=== PATIENT | female | born 2000 | race Caucasian/White ===

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

== ENCOUNTER → 2019-01-06 11:42 | Outpatient (CLI) | payer MEDICAID, SELFPAY ==
[2019-01-06 09:10] VITALS: BMI 22.7
--- NOTE | 2019-01-06 11:46 | US_ITS ---
STUDY: SECOND AND THIRD TRIMESTER OBSTETRICAL ULTRASOUND - LIMITED REASON FOR EXAM: Female, 18 years old. , assessment, recheck placenta LMP: August 15, 2018 PRIOR ULTRASOUND: November 20, 2018 TECHNIQUE: Transabdominal evaluation of the pelvis was performed using real-time ultrasound. FINDINGS: There is a single intrauterine fetus. The fetus is in a cephalic presentation. There is demonstrated cardiac activity with a heart rate of 150 bpm. There is a normal amniotic fluid volume. The placenta is anterior in location and is not low lying. There are Grade 1 placental changes. The cervix measures 3.8 cm in length. Two separate heterogeneous collections were measured adjacent to the placenta measuring 2.9 x 1.7 x 3.6 cm and 3.7 x 1.0 x 4.5 cm. BIOMETRY: BPD: 5.07 cm: 21 weeks, 3 days HC: 18.78 cm: 21 weeks, 1 days AC: 15.54 cm: 20 weeks, 5 days FL: 3.38 cm: 20 weeks, 5 days Age by LMP: 20 weeks, 4 days. MIKE by LMP: May 22, 2019. age by prior US: weeks, days. MIKE by prior US: May 19, 2019. age by current US: 21 weeks, 0 days. MIKE by current US: May 19, 2019. Estimated weight: 373 grams, +/- 55 grams, 54 percentile. US/OB Limited With Biometrics IMPRESSION: There is a viable intrauterine with estimated gestational age of 21 weeks 0 days by the current ultrasound. Two separate collections were measured adjacent to the placenta, probable resolving hematomas. The sizes are considerably smaller compared to the prior study. Electronically Signed: Yu Vang MD at 16:18 EST , Service support ,
== END ==
PROVIDERS: Referring Provider Obstetrics & Gynecology; Visit Provider Obstetrics & Gynecology
DX: O09.72 Supervision of high risk pregnancy due to social problems, second trimester (principal); O44.02 Complete placenta previa NOS or without hemorrhage, second trimester; Z3A.00 Weeks of gestation of pregnancy not specified
CPT/HCPCS: 76816

== ENCOUNTER → 2019-02-10 16:41 | Outpatient (CLI) | payer MEDICAID, SELFPAY ==
[2019-02-04 15:24] VITALS: BMI 22.7
== END ==
PROVIDERS: Referring Provider Nurse Practitioner Women's Health; Visit Provider Nurse Practitioner Women's Health
DX: R30.0 Dysuria (principal)
CPT/HCPCS: 87086; 87088

== ENCOUNTER → 2019-02-16 13:21 | Outpatient (CLI) | payer MEDICAID, SELFPAY ==
[2019-02-16 13:15] VITALS: BMI 22.7
[2019-02-16 13:26] LABS: ROM Internal Control Test YES-OK TO RESULT pt. (Internal QC); Record Kit Lot#, ROM+ J7836
[2019-02-16 13:36] LABS: Amphetamine Urine VISTA NEGATIVE (<1000 ng/mL); Barbiturate Urine VISTA NEGATIVE (< 200 ng/mL); Benzodiazepine Urine VISTA NEGATIVE (< 200 ng/mL); Cocaine Urine VISTA NEGATIVE (< 300 ng/mL); Ecstacy Urine VISTA NEGATIVE (< 500 ng/mL); Methadone Urine VISTA NEGATIVE (< 300 ng/mL); PCP Urine VISTA NEGATIVE (< 25 ng/mL); THC Urine VISTA NEGATIVE (< 50 ng/mL); Vista UDS pH Range 5
[2019-02-16 13:49] LABS: ROM Patient Test Negative (Negative)
== END ==
PROVIDERS: Visit Provider Nurse Practitioner Women's Health
DX: O42.90 Premature rupture of membranes, unspecified as to length of time between rupture and onset of labor, unspecified weeks of gestation (principal); O09.70 Supervision of high risk pregnancy due to social problems, unspecified trimester
CPT/HCPCS: 80307; 84112

== ENCOUNTER → 2019-03-05 | Outpatient (CLI) | payer MEDICAID, SELFPAY ==
[2019-03-05 14:38] VITALS: BMI 22.7
[2019-03-05 17:22] LABS: Absolute Lymphocyte Count 2.19 X10^3/ul (0.83-4.51); Absolute Neutrophil Count 7.7 X10^3/uL (2.0-7.7); Basophil# 0.01 X10^3/uL; Basophil% 0.1 % (0-1); Eosinophil# 0.07 X10^3/uL; Eosinophils% 0.6 % (0-5); Hemoglobin 9.5 g/dl (12.0-15.0); Lymphocyte # 2.19 X10^3/ul (4.0); Lymphocyte % 20.3 % (19-41); Mean Corp Hgb Conc 31.7 g/gl (32-36); Mean Corpuscular Hgb 26.8 pg (27.0-32.0); Mean Corpuscular Volume 84.7 fL (81-99); Mean Platelet Vol. 10.3 fl (6.2-12.0); Monocyte# 0.81 X10^3/uL; Monocyte% 7.5 % (0-10); Neutrophil # 7.68 X10^3/uL (2.7-7.7); Neutrophil % 71.4 % (47-70); Platelet Count 258 K/mm3 (150-450); RBC Distribution Width CV 13.1 % (11.6-14.6); RBC Distribution Width SD 40.3 fl (35.1-43.9); Red Blood Count 3.54 M/mm3 (4.2-5.4); White Blood Count 10.8 K/mm3 (4.4-11.0)
[2019-03-05 17:27] LABS: POSITIVE COUNT NO; POSITIVE DIFFERENTIAL NO; POSITIVE MORPHOLOGY NO
[2019-03-05 17:28] LABS: Glucose Challenge Gest 1H 50g 102 mg/dL (70-140)
== END | disposition home or self-care (01) ==
LOC: LAB 14:56
PROVIDERS: Family Provider Family Medicine; PCP Family Medicine; Referring Provider Obstetrics & Gynecology; Visit Provider Obstetrics & Gynecology
DX: Z34.93 Encounter for supervision of normal pregnancy, unspecified, third trimester (principal)
CPT/HCPCS: 36415; 82950; 85025

== ENCOUNTER 2019-03-09 17:45 | Outpatient (CLI) | payer MEDICAID, SELFPAY ==
[2019-03-05 14:38] VITALS: BMI 22.7
[2019-03-09 18:02] VITALS: BMI 26.7
[2019-03-09 18:35] LABS: Color, Urine Yellow (Yellow); Glucose, Dipstick Normal (Normal); Ketone-Dipstick 5 mg/dl (Negative); Leukocyte Esterase-Dipstick 100 /ul (Negative); Nitrite-Dipstick Negative (Negative); Occult Blood-Urine Negative /ul (Negative); Protein-Dipstick Negative (Negative); Urine Bilirubin Dipstick Negative (Negative); Urine Clarity Clear (Clear); Urine Urobilinogen Normal (Normal)
[2019-03-09 18:59] LABS: ROM Internal Control Test YES-OK TO RESULT pt. (Internal QC); ROM Patient Test Negative (Negative); Record Kit Lot#, ROM+ J7836
--- NOTE | 2019-03-13 06:35 | OB.TRI.PN ---
Progress Notes Date of Service: 03/09/19 Progress Note: questionable rom but negative romplus, no labor, fht present dc home Laboratory Studies: Laboratory Tests 03/09/19 03/09/19 Range/Units 18:20 18:10 Urine Color Yellow (Yellow) Urine Clarity Clear (Clear) Urine pH 6.0 (5.0 - 8.0) Ur Specific [place] 1.020 (1.002-1.030) Urine Protein Negative (Negative) mg/dl Urine Glucose (UA) Normal (Normal) mg/dl Urine Ketones 5 H (Negative) mg/dl Urine Occult Blood Negative (Negative) /ul Urine Nitrite Negative (Negative) Urine Bilirubin Negative (Negative) mg/dL Urine Urobilinogen Normal (Normal) mg/dl Ur Leukocyte Esterase 100 H (Negative) /ul Vag Amniotic Fld Detect Negative (Negative)
== END 2019-03-09 22:30 | disposition home or self-care (01) ==
LOC: WPOUT 17:55 → WP 17:56
PROVIDERS: Family Provider Family Medicine; PCP Family Medicine; Referring Provider Obstetrics & Gynecology; Visit Provider Obstetrics & Gynecology
DX: Z34.90 Encounter for supervision of normal pregnancy, unspecified, unspecified trimester (principal)
CPT/HCPCS: 59025; 59050; 81002; 84112; 87086; 87088; 99218; G0378

== ENCOUNTER 2019-03-22 10:50 | Outpatient (CLI) | payer MEDICAID, SELFPAY ==
[2019-03-18 14:17] VITALS: BMI 26.7
[2019-03-22 12:09] VITALS: BMI 26.8
[2019-03-22 12:51] LABS: Mucous, Urine 0 SEEN /hpf (<or=2+); Red Blood Cells-Urine 0 SEEN /hpf (0-5)
[2019-03-22 12:52] LABS: Color, Urine Yellow (Yellow); Glucose, Dipstick Normal (Normal); Ketone-Dipstick Negative (Negative); Leukocyte Esterase-Dipstick 500 /ul (Negative); Nitrite-Dipstick Negative (Negative); Occult Blood-Urine Negative /ul (Negative); Protein-Dipstick 15 mg/dl (Negative); Urine Bilirubin Dipstick Negative (Negative); Urine Clarity Sl. Cloudy (Clear); Urine Urobilinogen Normal (Normal)
[2019-03-22 12:58] LABS: Amorphous Sediment 1+; Bacteria 1+ /hpf (None Seen); Squamous Epithelial Cells - UA 5-10 SEEN /hpf (5-10); White Blood Cells 25-50 SEEN /hpf (0-5)
--- NOTE | 2019-03-23 03:34 | OB.TRI.PN ---
Progress Notes Date of Service: 03/22/19 Progress Note: Patient presented status post fall 2 days ago with complete back of her head no loss of consciousness but some intermittent headache and had felt decreased movement. Patient feeling good movement now heart tones 130s moderate variability reactive no decelerations category 1 tracing [place]: No regular contractions Assessment and plan head trauma, no neurologic symptoms recommend expectant management no imaging recommended due to radiation exposure. Precautions reviewed with patient recommend kick counts follow-up as scheduled for appointment outpatient Laboratory Studies: Laboratory Tests 03/22/19 Range/Units 12:45 Urine Color Yellow (Yellow) Urine Clarity Sl. Cloudy (Clear) Urine pH 7.0 (5.0 - 8.0) Ur Specific [place] 1.010 (1.002-1.030) Urine Protein 15 H (Negative) mg/dl Urine Glucose (UA) Normal (Normal) mg/dl Urine Ketones Negative (Negative) mg/dl Urine Occult Blood Negative (Negative) /ul Urine Nitrite Negative (Negative) Urine Bilirubin Negative (Negative) mg/dL Urine Urobilinogen Normal (Normal) mg/dl Ur Leukocyte Esterase 500 H (Negative) /ul Urine RBC 0 SEEN (0-5) /hpf Urine WBC 25-50 SEEN (0-5) /hpf Ur Squamous Epith Cells 5-10 SEEN (5-10) /hpf Amorphous Sediment 1+ Urine Bacteria 1+ (None Seen) /hpf Urine Mucus 0 SEEN (<or=2+) /hpf
== END 2019-03-22 13:10 | disposition home or self-care (01) ==
PROVIDERS: Family Provider Family Medicine; PCP Family Medicine; Referring Provider Obstetrics & Gynecology; Visit Provider Obstetrics & Gynecology
DX: O26.899 Other specified pregnancy related conditions, unspecified trimester (principal); S09.90XA Unspecified injury of head, initial encounter; Z3A.00 Weeks of gestation of pregnancy not specified; W19.XXXA Unspecified fall, initial encounter; Y93.89 Activity, other specified; Y92.89 Other specified places as the place of occurrence of the external cause; Y99.8 Other external cause status
CPT/HCPCS: 59025; 59050; 81001; 87086; 87088; 99218; G0378

== ENCOUNTER → 2019-04-19 | Outpatient (CLI) | payer MEDICAID, SELFPAY ==
[2019-04-19 11:52] VITALS: BMI 26.8
[2019-04-19 13:54] LABS: Absolute Lymphocyte Count 2.74 X10^3/ul (0.83-4.51); Absolute Neutrophil Count 8.7 X10^3/uL (2.0-7.7); Basophil# 0.01 X10^3/uL; Basophil% 0.1 % (0-1); Eosinophil# 0.07 X10^3/uL; Eosinophils% 0.6 % (0-5); Hematocrit 32.4 % (37-47); Hemoglobin 10.2 g/dl (12.0-15.0); Lymphocyte # 2.74 X10^3/ul (4.0); Lymphocyte % 21.7 % (19-41); Mean Corp Hgb Conc 31.5 g/gl (32-36); Mean Corpuscular Volume 79.4 fL (81-99); Monocyte# 1.03 X10^3/uL; Monocyte% 8.2 % (0-10); Neutrophil # 8.74 X10^3/uL (2.7-7.7); Neutrophil % 69.2 % (47-70); Platelet Count 264 K/mm3 (150-450); RBC Distribution Width CV 14.3 % (11.6-14.6); RBC Distribution Width SD 41.3 fl (35.1-43.9); Red Blood Count 4.08 M/mm3 (4.2-5.4); White Blood Count 12.6 K/mm3 (4.4-11.0)
[2019-04-19 13:57] LABS: POSITIVE COUNT NO; POSITIVE DIFFERENTIAL NO; POSITIVE MORPHOLOGY NO
== END | disposition home or self-care (01) ==
LOC: LABSPEC 13:16
PROVIDERS: Family Provider Family Medicine; PCP Family Medicine; Referring Provider Nurse Practitioner Women's Health; Visit Provider Nurse Practitioner Women's Health
DX: R30.0 Dysuria (principal); N89.8 Other specified noninflammatory disorders of vagina; D50.9 Iron deficiency anemia, unspecified
CPT/HCPCS: 36415; 85025; 87070; 87086; 87088; 87205

== ENCOUNTER 2019-04-21 13:30 | Outpatient (CLI) | payer MEDICAID, SELFPAY ==
[2019-04-19 11:52] VITALS: BMI 26.8
--- NOTE | 2019-04-21 12:27 | US_ITS ---
STUDY: SECOND AND THIRD TRIMESTER OBSTETRICAL ULTRASOUND - LIMITED REASON FOR EXAM: Female, 18 years old. Routine survey. History of subchorionic bleed. LMP: August 15, 2018. PRIOR ULTRASOUND: Comparison is made with prior study dated January 06, 2019. TECHNIQUE: Transabdominal and Transvaginal TECHNICAL QUALITY: Adequate. FINDINGS: There is a single intrauterine fetus. The fetus is in a cephalic presentation. There is demonstrated cardiac activity with a heart rate of 124 bpm. There is a normal amniotic fluid volume. The largest amniotic fluid pocket measures 3.7 cm. The amniotic fluid index (USAMA) is 10.7 cm. The placenta is anterior in location and is not low lying. There are Grade 2 placental changes. There is a single heterogeneous collection adjacent to the placenta at this time. It presently measures 4.2 cm x 3.9 cm x 1.8 cm. The cervix measures 2.1 cm in length. BIOMETRY: BPD: 9.4 cm: 38 weeks, 2 days HC: 34.01 cm: 39 weeks, 1 days AC: 30.89 cm: 34 weeks, 6 days FL: 6.95 cm: 34 weeks, 5 days Age by LMP: 35 weeks, 4 days. MIKE by LMP: May 22, 2019.. age by prior US: 36 weeks, 0 days. MIKE by prior US: May 19, 2019. age by current US: 37 weeks, 0 days. MIKE by current US: May 12, 2019. Estimated weight: 2784 grams, +/- 407 grams, 57 percentile. Gender: Indeterminant US/OB Limited With Biometrics IMPRESSION: Single live intrauterine gestation with a mean gestational age of 36 weeks. The measurements obtained today following the normal expected range. Heterogeneous collection adjacent to the placenta measuring 4.2 cm x 3.9 cm x 1.8 cm. Electronically Signed: Allen Villa, at 14:11 EDT , Service support ,
[2019-04-21 14:48] LABS: Fetal Fibronectin Negative
[2019-04-21 15:42] VITALS: BMI 28.5
--- NOTE | 2019-04-28 18:25 | OB.TRI.HP_ITS ---
History of Present Illness Date of Service: 04/21/19 Was patient seen by the physician?: No Reason For Visit: FIBRONECTIN/GROWTH Date of Service: 04/21/19 Final MIKE: 05/22/19 Gestational age: 36 Weeks and 4 Days History of Present Illness: Noted to have shortened cervix on US. No complaints Allergies No Known Allergies Allergy (Verified 04/26/19 10:54) - Pertinent Past Medical History Surgical History: Past Surgical History (Last Reviewed 04/26/19 @ 10:59 by Keila Haley) History of incision and drainage pilonidal cyst 08/04 Laboratory Studies: Laboratory Tests 04/21/19 Range/Units 14:10 Fibronectin Negative Physical Exam General: Alert, Oriented x3, Cooperative, No apparent distress Lungs: Clear to auscultation, Normal air movement Abdomen: Soft, Non Tender, Gravid, Appropriate for Gestational Age Extremities:: No edema Neurological: Neuro grossly intact ELECTROMYOGRAPHIC TECHNICIAN: Normal external genitalia Estimated gestational size: Appropriate for gestational size Presentation: Cephalic Cervix Dilation (cm): 1 Station: -2 Effacement (%): 50 NST - FHR Rate Baby A Baseline: 120s Variability:: Moderate Accelerations:: 15 x 15 Decelerations:: None NST Reactive:: Yes, Appropriate for gestational age FHR Category:: Category I Uterine Activity:: none Impression/Plan Shortened cervix. FFN negative. Discharged home with no signs of labor.
== END 2019-04-21 15:50 | disposition home or self-care (01) ==
LOC: WPOUT 13:38 → OPUS 13:41 → WPOUT 13:42 → WP 13:42
PROVIDERS: Family Provider Family Medicine; PCP Family Medicine; Referring Provider Obstetrics & Gynecology; Visit Provider Obstetrics & Gynecology
DX: O26.873 Cervical shortening, third trimester (principal); Z3A.36 36 weeks gestation of pregnancy
CPT/HCPCS: 59025; 59050; 76816; 82731; 99218; G0378

== ENCOUNTER → 2019-04-26 | Outpatient (CLI) | payer MEDICAID, SELFPAY ==
[2019-04-26 11:39] VITALS: BMI 28.5
[2019-04-26 14:25] LABS: Amphetamine Urine VISTA NEGATIVE (<1000 ng/mL); Barbiturate Urine VISTA NEGATIVE (< 200 ng/mL); Benzodiazepine Urine VISTA NEGATIVE (< 200 ng/mL); Cocaine Urine VISTA NEGATIVE (< 300 ng/mL); Ecstacy Urine VISTA NEGATIVE (< 500 ng/mL); Methadone Urine VISTA NEGATIVE (< 300 ng/mL); PCP Urine VISTA NEGATIVE (< 25 ng/mL); THC Urine VISTA NEGATIVE (< 50 ng/mL); Vista UDS pH Range 6
== END | disposition home or self-care (01) ==
PROVIDERS: Family Provider Family Medicine; PCP Family Medicine; Referring Provider Obstetrics & Gynecology; Visit Provider Obstetrics & Gynecology
DX: O09.73 Supervision of high risk pregnancy due to social problems, third trimester (principal); Z3A.36 36 weeks gestation of pregnancy; Z87.898 Personal history of other specified conditions
CPT/HCPCS: 80307; 87081

== ENCOUNTER 2019-04-30 05:16 | Inpatient (IN) | payer MEDICAID, SELFPAY ==
[2019-04-26 11:39] VITALS: BMI 28.5
--- NOTE | 2019-04-30 | PLAC_PTH ---
PATIENT: HESHAM MIJARES LOC: [facility] U#:[id number] AGE/SX: 18/F ROOM: WP005 RE04/30/[address]: Dr. Soumya Ordonez MD : 2000 BED: 1 DIS: 05/02/2019 SPEC #: [id number] RECD: 04/30/19 21:52 STATUS: CHANDRA LOPEZ #: [id number] RAI: 04/30/19 00:[address]: Soumya Ordonez DEPT: SURGICAL PATHOLOGY RECD BY: Yao Easley ENTERED: 05/03/19 10:12 SP TYPE: PLACENTA OTHR DR: Dr. Yesenia Santiago MD Tissues: Placenta, NOS Procedures: Surgery Specimen Level V HEADER OPERATION: Vaginal delivery PRE-OP DIAGNOSIS: Placental abruption? TISSUE SUBMITTED: Placenta MICROSCOPIC DIAGNOSIS Placenta: Placental disc - third trimester placenta (546 gm). - Focal areas of intraparenchymal hemorrhage (0.5 to 0.7 cm in greatest dimension). - Focal area of peripheral infarction and calcification (5 x 1 x 1 cm). Membranes - no pathologic diagnosis. Umbilical cord - three blood vessels and no pathologic diagnosis. SJ:eovnne 05/04/19 COMMENT The membranes also show numerous macrophages, the significance is not clear. MICROSCOPIC DESCRIPTION Slides are reviewed. GROSS DESCRIPTION SPECIMEN: PLACENTA / CLINICAL INFORMATION: A. Weight: 2.877 kg B. Gestational Age: 36 weeks C. Sex: Male PLACENTAL WEIGHT (POST FIXATION): 546 gm PLACENTAL DIMENSIONS: 18 x 15 x 4 cm PLACENTAL SHAPE: Usual ovoid PLACENTAL WEIGHT FOR GESTATIONAL AGE: Within 10-99th percentile. MEMBRANES - Present A. Insertion: Marginal B. Site of rupture from edge: At edge of placental disc C. Color of membrane: Roper-dietz D. Abnormalities: The membranes show focal indurated plaque-like area adjacent to the peripheral surface of placenta measuring 5 x 1 x 1 cm. UMBILICAL CORD - Present A. Color: Roper-dietz B. Insertion: Paracentral C. Length: 40 cm D. Diameter: 1 to 1.5 cm E. Number of vessels: Three F. Abnormalities: None PLACENTAL DISC - Present A. Color of surface: Roper-dietz B. surface abnormalities: None C. Maternal cotyledons: Intact with minimal tears D. Attached retro placental clot: No clot E. Cut surface: Dark red and spongy F. Lesions: None G. Separate clot: Absent SECTIONS SUBMITTED: 1. Membrane roll 2. Cord, maternal end, plaque-like area 3. Cord, end, plaque-like area 4. Placental disc, and maternal surfaces 5. Placental disc, and maternal surfaces 6. Placental disc, and maternal surfaces SJ:evonne 05/03/19 TC:5 CPT: 15391
[2019-04-30 05:42] VITALS: BMI 29.0
[2019-04-30] MEDS: Lactated Ringers 1,000 ML 50 ML IV ×2 (06:10→15:07)
[2019-04-30] MEDS: Betamethasone/Betamethasone 30 MG/5 ML Vial 12 MG IM (06:31)
[2019-04-30 06:34] LABS: Absolute Lymphocyte Count 2.87 X10^3/ul (0.83-4.51); Absolute Neutrophil Count 6.9 X10^3/uL (2.0-7.7); Basophil# 0.01 X10^3/uL; Basophil% 0.1 % (0-1); Eosinophil# 0.11 X10^3/uL; Hematocrit 36.6 % (37-47); Hemoglobin 11.5 g/dl (12.0-15.0); Lymphocyte # 2.87 X10^3/ul (4.0); Lymphocyte % 26.6 % (19-41); Mean Corp Hgb Conc 31.4 g/gl (32-36); Mean Corpuscular Hgb 24.2 pg (27.0-32.0); Mean Corpuscular Volume 76.9 fL (81-99); Mean Platelet Vol. 10.8 fl (6.2-12.0); Monocyte# 0.85 X10^3/uL; Monocyte% 7.9 % (0-10); Neutrophil # 6.91 X10^3/uL (2.7-7.7); Neutrophil % 64.1 % (47-70); Platelet Count 262 K/mm3 (150-450); RBC Distribution Width CV 14.7 % (11.6-14.6); RBC Distribution Width SD 39.9 fl (35.1-43.9); Red Blood Count 4.76 M/mm3 (4.2-5.4); White Blood Count 10.8 K/mm3 (4.4-11.0)
[2019-04-30 06:44] LABS: POSITIVE COUNT NO; POSITIVE DIFFERENTIAL NO; POSITIVE MORPHOLOGY NO
--- NOTE | 2019-04-30 07:58 | HP.PCM_ITS ---
- Problem List (1) Placental abnormality in third trimester Status: Acute Comment: 4 cm heterogenous area next to placenta. 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 anatomy US reviewed. History Date of Admission: 01/07/12 Final MIKE: 05/22/19 Gestational age: 36 Weeks and 6 Days History of this : This is a 18 year-old, at 36 weeks gestational age presents with PPROM and starting to have contractions. Started to have clear loss of fluid at 5:00 this morning. She has been treated for respiratory infection with amoxicillin for the last 3 days. Surgical History: Surgical History (Last Reviewed 04/26/19 @ 10:59 by Keila Haley) History of incision and drainage Z98.890 pilonidal cyst 08/04 Allergies No Known Allergies Allergy (Verified 04/30/19 05:43) Home Medications: Home Medications Amoxicillin 875 mg PO BID 04/30/19 Smoking Status: Light Smoker (<10/day) Alcohol: None Number of Fetus(es): 1 Heart Tracin moderate variability reactive no decelerations category I tracing [place]: regular History Past Pregnancies: Past Pregnancies Delivery Date Name GA/Weeks Outcome Route Weight Infant Gender Labor Length Anesthesia Delivery Location Provider FOB Labs: Mom's Labs & Results 04/30/19 04/30/19 06:10 06:10 WBC 10.8 RBC 4.76 Hgb 11.5 L Hct 36.6 L MCV 76.9 L MCH 24.2 L MCHC 31.4 L RDW 14.7 H RDW Differential 39.9 Plt Count 262 MPV 10.8 Immature Gran % (Auto) 0.300 Neut % (Auto) 64.1 Lymph % (Auto) 26.6 [place] % (Auto) 7.9 Eos % (Auto) 1.0 Baso % (Auto) 0.1 Absolute Neuts (auto) 6.9 Absolute Lymphs (auto) 2.87 Total Counted Not Reportable Blood Type B POSITIVE Antibody Screen NEGATIVE Course Did the patient receive Yes care? Labs RPR/VDRL/Syphilis Nonreactive Rubella status Immune HbSAg Negative Date Done: 11/13/18 Chlamydia Negative Gonorrhea Negative HIV/AIDS Non-Reactive Group B Strep: Negative Current Obstetrical History Gestational Diabetes No Incompetent Cervix No Infertility No IUGR No Macrosomia No Hypertension/Pre-eclampsia No Placenta Previa/Abruption No PTL/PROM No Uterine anomaly No Oligohydramnios No Polyhydramnios No Multiple gestation No Past Medical History Asthma Yes: pt states she hasn't used an inhaler in a while Diabetes No Hypertension No Heart disease No Mitral valve prolapse No Neurologic/Seizure disorder/ Yes Migraines Kidney disease No Liver disease No Varicosities No Clotting disorders/Hx of DVT No Thyroid Dysfunction No Other medical diseases No Psychiatric disorders No Major trauma No Abnormal PAP smear No Sleep apnea No Social History Marital Status: Alleged father Marcos Hx Smoking Yes Smoking Status Light Smoker (<10/day) Expected Infant Delivery Method: Spontaneous Vaginal Review of Systems Constitutional: Denies: Fever, Malaise Eyes: Denies: Blurred vision, Vision Change HEENT: Denies: Head Aches, Visual Changes Cardiovascular: Denies: Chest Pain, Palpitations Respiratory: Denies: Cough, Shortness of Breath, Wheezing Gastrointestinal: Denies: Abdominal Pain, Diarrhea, Nausea, Vomiting Genitourinary: Denies: Dysuria, Hematuria Musculoskeletal: Denies: Joint Pain, Muscle pain Skin: Denies: Lesions, Rash Neurological: Denies: Blurred vision, Focal weakness, Headaches Psychiatric: Denies: Anxiety, Depression Endocrine: Denies: Heat/ Cold Intolerance Hematologic/ Lymphatic: Denies: Easy Bruising, Easy Bleeding Physical Exam General: Alert, Cooperative, No apparent distress HEENT: Atraumatic, Normocephalic. Negative for: Thyromegaly, Lymphadenopathy Cardiovascular: Regular rate Lungs: Normal air movement Abdomen: Soft, Non Tender, Gravid Neurological: Deep Tendon Reflexes 2+/4 and Symmetrical, Neuro grossly intact. Negative for: Clonus [employer]: Normal external genitalia. Negative for: Vulvar lesions Estimated gestational size: Appropriate for gestational size Presentation: Cephalic Assessment/Plan All Active Problems (Last Reviewed 04/26/19 @ 10:59 by Keila Haley) Placental abnormality in third trimester (Acute) Iron (Fe) deficiency anemia (Acute) History of drug use (Acute) Supervision of high risk due to social problems (Acute) Anxiety (Acute) (Acute) Ultrasound scan to recheck subchorionic hemorrhage, antepartum (Resolved) This is a 18 year-old, at 36 weeks gestational age presents with PPROM. Patient presents IAL, plan expectant management for , pitocin if no cervical change Pain management: plans epidural. GBS negative. Management of any complications: No leukocytosis or fever or abdominal pain, no signs of chorioamnionitis, antibiotics indicated if signs or symptoms of chorioamnionitis develop. I have reviewed the [facility] and made any clinically relevant updates.
[2019-04-30 09:31] LABS: Amphetamine Urine VISTA NEGATIVE (<1000 ng/mL); Barbiturate Urine VISTA NEGATIVE (< 200 ng/mL); Benzodiazepine Urine VISTA NEGATIVE (< 200 ng/mL); Cocaine Urine VISTA NEGATIVE (< 300 ng/mL); Ecstacy Urine VISTA NEGATIVE (< 500 ng/mL); Methadone Urine VISTA NEGATIVE (< 300 ng/mL); PCP Urine VISTA NEGATIVE (< 25 ng/mL); THC Urine VISTA NEGATIVE (< 50 ng/mL); Vista UDS pH Range 7
[2019-04-30] MEDS: Oxytocin 30 units/NS 500 ml 30 UNITS/500 ML IV.SOLN IV (12:33)
[2019-04-30] MEDS: Nalbuphine 10 MG/ML Ampul IV (14:21)
[2019-04-30] MEDS: fentaNYL-bupivacaine (epidural) 100 ML BAG EPIDURAL (15:32)
[2019-04-30] MEDS: Oxytocin 30 units/NS 500 ml 30 UNITS/500 ML IV.SOLN 334 UNITS IV (19:58)
[2019-04-30] MEDS: Oxytocin 30 units/NS 500 ml 30 UNITS/500 ML IV.SOLN 167 UNITS IV (20:28)
[2019-04-30] MEDS: 0.9% Saline Lock 10 ML Syringe IV (21:38)
--- NOTE | 2019-04-30 22:54 | OP.PCM_ITS ---
Problem List (1) Placental abnormality in third trimester Status: Acute Comment: 4 cm heterogenous area next to placenta. 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 anatomy US reviewed. Vaginal Delivery Maternal Presentation: Spontaneous Rupture of Membranes pprom 36w6d Amniotic Membrane Rupture Type: Spontaneous at home Amniotic Fluid Description: Clear Final MIKE: 05/22/19 Gestational age: 36 Weeks and 6 Days Date of Procedure: 04/30/19 Pre-Operative Diagnosis: pprom Post-Operative Diagnosis: same Surgery/ Procedure Performed: Spontaneous Vaginal Delivery Type of Anesthesia: Epidural Description of Procedure: Patient began pushing and delivered the head in the JUNITO presentation. The head was delivered atraumatically . The anterior and posterior shoulders delivered without complication followed by the rest of the and the was placed on the maternal abdomen. Delayed cord clamping was employed for approximately 60 seconds. Cord was clamped and cut and gentle traction was applied to the cord and the placenta delivered spontaneously immediately following it was noted to be intact with three-vessel cord. The perineum and va shilpi were inspected and noted to have a small first-degree vaginal laceration that was repaired in the usual fashion with 3-0 Vicryl repeat. EBL was 200 cc. Patient and tolerated delivery well. Presentation: JUNITO Placental Delivery Description: Spontaneous Placenta Disposition: Sent to Pathology Cord Vessel Description: 3 Vessels Cord Entanglement: None Estimated Blood Loss: 200 Infant A gender: Male Episiotomy Description: None Laceration: Vaginal Extension/lac, 1st degree Medications given after delivery: IV Pitocin Complications: None
[2019-04-30] MEDS: Naproxen 250 MG Tablet 500 MG PO (23:21)
[2019-04-30] MEDS: Senna/Docusate Sodium 1 Tablet PO (23:23)
[2019-04-30 23:32] LABS: Pathology Specimen OB SEE PATHOLOGY REPORT
[2019-04-30 23:41] VITALS: BP 124/61; PULSE 84; RESP 16; TEMP 37; O2SAT 98
[2019-05-01] MEDS: Acetaminophen 500 MG Tablet 1000 MG PO ×3 (02:16→23:37)
[2019-05-01 03:19] VITALS: BP 100/53; PULSE 80; RESP 16; TEMP 37; O2SAT 96
--- NOTE | 2019-05-01 09:00 | PCM.PN.OB ---
Subjective: doing well no complaints pain controlled no CP SOB N V ambulating well tolerating po lochia moderate, going well - Physical Exam General: Alert, Oriented x3 Vital Signs Temp Pulse Resp BP Pulse Ox 98.6 F 80 16 100/53 L 96 05/01/19 03:19 05/01/19 03:19 05/01/19 03:19 05/01/19 03:19 05/01/19 03:19 Oxygen Delivery Method Room Air Weight: 185 lb Body Mass Index (BMI) 29.0 Intake and Output for Last 24 Hours 04/29/19 04/30/19 05/01/19 23:59 23:59 23:59 Intake Total 1856 / 1856 Output Total 825 / 825 300 / 300 Balance 1031 / 1031 -300 / -300 Laboratory Tests Past 24 Hrs 04/30/19 04/30/19 09:00 17:40 Urine Opiates Screen NEGATIVE Urine Methadone Screen NEGATIVE Ur Barbiturates Screen NEGATIVE Ur Phencyclidine Scrn NEGATIVE Ur Amphetamines Screen NEGATIVE U Methamphetamin-MDMA NEGATIVE U Benzodiazepines Scrn NEGATIVE Urine Cocaine Screen NEGATIVE U Cannabinoids Screen NEGATIVE Ur Drug Screen Comment Hepatitis C Ab (EIA) Pending Medical Necessity - Tobacco Use Smoking Status: Current some day smoker Assessment/Plan All Active Problems (Last Reviewed 04/26/19 @ 10:59 by Keila Haley) Placental abnormality in third trimester (Acute) Iron (Fe) deficiency anemia (Acute) History of drug use (Acute) Supervision of high risk due to social problems (Acute) Anxiety (Acute) (Acute) Ultrasound scan to recheck subchorionic hemorrhage, antepartum (Resolved) s/p PPD # 1 1. routine post delivery care 2. breast feeding- support given 3. rh positive 4. rubella immune
[2019-05-01] MEDS: Naproxen 250 MG Tablet 500 MG PO ×2 (09:08→18:11)
[2019-05-01] MEDS: Senna/Docusate Sodium 1 Tablet PO ×2 (09:08→23:37)
[2019-05-01 09:10] VITALS: BP 107/57; PULSE 90; RESP 18; TEMP 36.8
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
[2019-05-01 13:20] VITALS: BP 116/53; PULSE 90; RESP 18; TEMP 36.8
[2019-05-01 16:40] VITALS: BP 111/53; PULSE 90; RESP 18; TEMP 36.3
[2019-05-01 20:30] VITALS: BP 115/48; PULSE 75; RESP 16; TEMP 37.1; O2SAT 96
--- NOTE | 2019-05-01 21:30 | NURSING ---
This RN explained to pt. that RN wants infant to be on feeding plan of at least 10cc breastmilk or colostrum. Pt. said she doesn't want to give infant formula and said I will force him to latch and eat. Pt. seems agitated about how has been feeding.
[2019-05-02 02:41] VITALS: BP 106/46; PULSE 81; RESP 16; TEMP 36.9; O2SAT 96
--- NOTE | 2019-05-02 02:52 | NURSING ---
Pt. has been emotionally involved with baby during this shift coordinator but has struggled some with participating in care. Pt. has requested full assistance by RN for every feed and has had visitors holding infant most of the evening while she was on her cellphone. At one point during the night, this RN asked pt. if had any wet or dirty diapers to which the pt. responded I don't know, I haven't held him in a while. Visitors present holding infant. Pt. also stated to this RN that she is a big baby and I'm so glad you're here to take care of me. At the beginning of the shift, pt. laid back for fundus check and requests help sitting back up after she grabbed her legs and rocked around stating I'm a big baby, help me. This RN had a conversation with the pt. stating that we needed to see an independent feed before discharge so we could see she is able to breastfeed or adequately pump and feed at home. Pt. stated Oh, I can do it, I've just been lazy. Pt. instructed to independently perform 0230 feeding. This RN will continue to monitor and check in with pt. to ensure she is involved in feedings and diaper changes.
--- NOTE | 2019-05-02 06:14 | DCINST_ITS ---
Discharge Diet: No Restrictions Discharge Activity: Return to Normal Activity, May not drive while taking narcotic pain medications., May Shower May resume sexual activity in: 4-6 weeks Call your doctor if your incision/area has: Continuous Slow Oozing, Sudden Increased Bleeding, Increased Pain/ Swelling, Increased Redness, Foul Smelling Discharge Additional Instructions: If you experience any of the following, contact your healthcare provider. * Bleeding that soaks a pad every hour for 2 hours * Fever 100.4 or higher * Unrelieved incision or abdominal pain * Swelling, redness, discharge or bleeding from your incision or episiotomy site * Your incision begins to separate * Problems urinating (including inability to urinate or burning while urinating). * Visual changes * Severe headache * Flu-like symptoms * Pain or redness in one of both of your breasts * Pain, warmth, tenderness or swelling in your legs, especially the calf area * Frequent nausea and vomiting * Symptoms of depression or anxiety If you experience any of the following, call 911 or go to the nearest Emergency Room. * Chest pain * Problems breathing * Seizure activity * Partial or complete paralysis of a body part, slurred speech, weakness or drooping of the face, or a sudden inability to walk or hold your balance Allergies/Adverse Reactions: Allergies No Known Allergies Allergy (Verified 04/30/19 05:43) Medications to take at Discharge Amoxicillin 875 mg PO BID 04/30/19 Please Follow Up With: Soumya Ordonez MD - [phone] When: Call to make an appointment with your doctor in 6 weeks. If you had elevated Blood pressure or 4th degree laceration you will need to be seen in 2 weeks. Primary Care Physician: Yesenia Santiago MD [Primary Care Provider] - Test Results: Test results from this visit will be discussed in further detail at your follow- up appointment, if applicable.
--- NOTE | 2019-05-02 06:14 | PCM.PN.OB ---
Subjective: doing well no complaints pain controlled no CP SOB N V ambulating well tolerating po lochia moderate, going well - Physical Exam General: Alert, Oriented x3 Vital Signs Temp Pulse Resp BP Pulse Ox 98.4 F 81 16 106/46 L 96 05/02/19 02:41 05/02/19 02:41 05/02/19 02:41 05/02/19 02:41 05/02/19 02:41 Oxygen Delivery Method Room Air Weight: 185 lb Body Mass Index (BMI) 29.0 Intake and Output for Last 24 Hours 04/30/19 05/01/19 05/02/19 23:59 23:59 23:59 Intake Total 1856 / 1856 Output Total 825 / 825 300 / 300 Balance 1031 / 1031 -300 / -300 Medical Necessity - Tobacco Use Smoking Status: Current some day smoker Assessment/Plan All Active Problems (Last Reviewed 04/26/19 @ 10:59 by Keila Haley) Placental abnormality in third trimester (Acute) Iron (Fe) deficiency anemia (Acute) History of drug use (Acute) Supervision of high risk due to social problems (Acute) Anxiety (Acute) (Acute) Ultrasound scan to recheck subchorionic hemorrhage, antepartum (Resolved) s/p PPD # 2 1. routine post delivery care 2. breast feeding- support given 3. rh positive 4. rubella immune
--- NOTE | 2019-05-02 06:14 | PCM.DCVAG ---
Discharge Diet: No Restrictions Discharge Activity: Return to Normal Activity, May not drive while taking narcotic pain medications., May Shower May resume sexual activity in: 4-6 weeks Call your doctor if your incision/area has: Continuous Slow Oozing, Sudden Increased Bleeding, Increased Pain/ Swelling, Increased Redness, Foul Smelling Discharge Additional Instructions: If you experience any of the following, contact your healthcare provider. Bleeding that soaks a pad every hour for 2 hours Fever 100.4 or higher Unrelieved incision or abdominal pain Swelling, redness, discharge or bleeding from your incision or episiotomy site Your incision begins to separate Problems urinating (including inability to urinate or burning while urinating). Visual changes Severe headache Flu-like symptoms Pain or redness in one of both of your breasts Pain, warmth, tenderness or swelling in your legs, especially the calf area Frequent nausea and vomiting Symptoms of depression or anxiety If you experience any of the following, call 911 or go to the nearest Emergency Room. Chest pain Problems breathing Seizure activity Partial or complete paralysis of a body part, slurred speech, weakness or drooping of the face, or a sudden inability to walk or hold your balance Allergies/Adverse Reactions: Allergies No Known Allergies Allergy (Verified 04/30/19 05:43) Medications to take at Discharge Amoxicillin 875 mg PO BID 04/30/19 Please Follow Up With: Soumya Ordonez MD - [phone] When: Call to make an appointment with your doctor in 6 weeks. If you had elevated Blood pressure or 4th degree laceration you will need to be seen in 2 weeks. Primary Care Physician: Yesenia Santiago MD [Primary Care Provider] - Test Results: Test results from this visit will be discussed in further detail at your follow-up appointment, if applicable.
[2019-05-02] MEDS: Naproxen 250 MG Tablet 500 MG PO ×2 (07:45→17:43)
[2019-05-02 08:00] VITALS: BP 110/58; PULSE 70; RESP 16; TEMP 36.7; O2SAT 97
[2019-05-02 12:39] VITALS: BP 125/55; PULSE 90; RESP 16; TEMP 36.9; O2SAT 97
[2019-05-02 17:24] VITALS: BP 105/55; PULSE 80; RESP 16; TEMP 37.1; O2SAT 97
[2019-05-03 11:11] LABS: Hep C Antibodies <0.1 s/co ratio (0.0-0.9)
== END 2019-05-02 17:49 | disposition home or self-care (01) | DRG 560 ==
PROVIDERS: Admitting Provider Obstetrics & Gynecology; Family Provider Family Medicine; PCP Family Medicine; Referring Provider Obstetrics & Gynecology; Visit Provider Obstetrics & Gynecology
DX: O42.013 Preterm premature rupture of membranes, onset of labor within 24 hours of rupture, third trimester (principal); O71.4 Obstetric high vaginal laceration alone; O99.334 Smoking (tobacco) complicating childbirth; O99.02 Anemia complicating childbirth; D50.9 Iron deficiency anemia, unspecified; Z3A.36 36 weeks gestation of pregnancy; Z37.0 Single live birth
CPT/HCPCS: 59025; 59050; 80307; 85025; 86803; 86850; 86900; 88307; 99218; J7120; A4216; G0378; J0702

== ENCOUNTER → 2019-05-07 | Outpatient (CLI) | payer MEDICAID, SELFPAY ==
[2019-04-30 05:42] VITALS: BMI 29.0
[2019-05-07 09:14] LABS: Absolute Lymphocyte Count 3.33 X10^3/ul (0.83-4.51); Absolute Neutrophil Count 4.7 X10^3/uL (2.0-7.7); Basophil# 0.03 X10^3/uL; Basophil% 0.3 % (0-1); Eosinophil# 0.14 X10^3/uL; Eosinophils% 1.6 % (0-5); Hematocrit 33.9 % (37-47); Hemoglobin 10.4 g/dl (12.0-15.0); Lymphocyte # 3.33 X10^3/ul (4.0); Lymphocyte % 37.5 % (19-41); Mean Corp Hgb Conc 30.7 g/gl (32-36); Mean Corpuscular Volume 78.3 fL (81-99); Mean Platelet Vol. 9.8 fl (6.2-12.0); Monocyte# 0.66 X10^3/uL; Monocyte% 7.4 % (0-10); Neutrophil # 4.72 X10^3/uL (2.7-7.7); Neutrophil % 53.1 % (47-70); Platelet Count 332 K/mm3 (150-450); RBC Distribution Width CV 14.8 % (11.6-14.6); RBC Distribution Width SD 42.4 fl (35.1-43.9); Red Blood Count 4.33 M/mm3 (4.2-5.4); White Blood Count 8.9 K/mm3 (4.4-11.0)
[2019-05-07 09:15] LABS: POSITIVE COUNT NO; POSITIVE DIFFERENTIAL NO; POSITIVE MORPHOLOGY NO
== END | disposition home or self-care (01) ==
LOC: LAB 08:35
PROVIDERS: Family Provider Family Medicine; PCP Family Medicine; Referring Provider Obstetrics & Gynecology; Visit Provider Obstetrics & Gynecology
DX: N93.9 Abnormal uterine and vaginal bleeding, unspecified (principal)
CPT/HCPCS: 36415; 85025

== ENCOUNTER 2019-07-10 08:57 | Emergency (ER) | payer MEDICAID, SELFPAY ==
[2019-06-15 14:05] VITALS: BMI 29.0
[2019-07-10 08:58] VITALS: BP 113/72; PULSE 74; RESP 16; TEMP 36.1; O2SAT 97; BMI 22.4
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
== END 2019-07-10 10:00 | disposition home or self-care (01) ==
PROVIDERS: Emergency Provider Emergency Medicine; Family Provider Family Medicine; PCP Family Medicine
DX: H60.12 Cellulitis of left external ear (principal); F17.200 Nicotine dependence, unspecified, uncomplicated
CPT/HCPCS: 99282

== ENCOUNTER 2019-07-24 07:54 | Emergency (ER) | payer SELFPAY ==
[2019-07-24 07:55] VITALS: BP 121/65; PULSE 77; RESP 17; TEMP 36.9; O2SAT 97; BMI 24.3
--- NOTE | 2019-07-24 08:05 | ED.VIS.GEN ---
History of Present Illness Chief Complaint: Complaint Narrative: Patient presenting for evaluation secondary to dysuria as well as upper respiratory complaints. Patient states that she is 2 months from a normal vaginal delivery that was uncomplicated and was not assisted by any sort of instrumentation such as vacuum or forceps. Patient states that since about 2 weeks after her vaginal delivery, she has been dealing with persistent dysuria. Patient states that she has pain with urinating, suprapubic pain, and low back pain. Patient reports that she went to urgent care recently for this, had her urine tested, and was told that she likely did not have a urinary tract infection. She reports that she is having persistent symptoms, and thinks I have a kidney infection. Patient states that over the course the last 3 or 4 days she has been dealing with a respiratory illness associated with nasal congestion, drainage, and sore throat with a mild cough. She denies being short of breath. Review of systems otherwise negative. Past Medical History - Allergies and Home Meds Allergies/Adverse Reactions: Allergies No Known Allergies Allergy (Verified 07/24/19 07:55) Primary Care Physician: Yesenia Santiago MD [Primary Care Provider] - 5-7 Days Past Medical History: - - Depression Surgical History: adenoidectomy, tonsillectomy Smoking Status: Current every day smoker Review of Systems All systems negative except as indicated General: Denies: Chills, Fever ENT: Reports: Rhinorrhea, Sore throat Respiratory: Reports: Cough Genitourinary: Reports: Dysuria, Hematuria Physical Exam Vital Signs/Narrative: Vital Signs Temp Pulse Resp BP Pulse Ox 07/24/19 07:55 98.4 F 77 17 121/65 H 97 General: Well nourished, Well developed, No Acute Distress Head: Normocephalic, Atraumatic Eyes: Perrl, EOMI ENT: Moist mucous membranes, - - Nasal congestion with swollen turbinates and clear drainage, normal posterior oropharynx Neck: Supple, Nontender Cardiovascular: Regular rate, Regular rhythm, No murmurs Respiratory: No distress, CTA bilaterally, Chest nontender Abdomen: Soft, Tender - Minimal suprapubic tenderness no guarding no rebound Back: Nontender, Normal Inspection Extremities: Nontender, No edema Skin: Normal color, No rash Neurological: Alert, Oriented x3, Cranial nerves II-XII grossly intact, Normal Strength, Normal Sensation Psychological: Normal affect, Normal Mood Diagnostic/Tx/Re-eval - Medical Decision Making Patient presented secondary to dysuria and URI type symptoms. Patient has no evidence of sinusitis pneumonia or strep throat. I do not believe that antibiotics are indicated for that. Urinalysis was found to be leukocyte esterase positive. Given the patient's symptomatology and positive leuks, I believe that she should be treated for UTI. Patient be treated with a course of Bactrim ED Disposition - Plan for ED Patient: Disposition: Home or Assisted Living Diagnosis: UTI (urinary tract infection), URI (upper respiratory infection) Instructions: Bladder Infection, Female (Adult) Prescriptions: Smz/Tmp Ds [Bactrim Ds] 1 tablet PO BID #14 tablet Referrals: Yesenia Santiago MD [Primary Care Provider] - 5-7 Days
[2019-07-24 08:37] LABS: Color, Urine Yellow (Yellow); Glucose, Dipstick Normal (Normal); Ketone-Dipstick 5 mg/dl (Negative); Leukocyte Esterase-Dipstick 25 /ul (Negative); Nitrite-Dipstick Negative (Negative); Occult Blood-Urine Negative /ul (Negative); Protein-Dipstick 15 mg/dl (Negative); Urine Bilirubin Dipstick Negative (Negative); Urine Clarity Clear (Clear); Urine Urobilinogen 1 mg/dl (Normal)
[2019-07-24 08:41] LABS: Internal QC Validated? YES +Cl - CLEAR BKGD; Pregnancy, Urine Negative Negative
[2019-07-24 09:07] VITALS: BP 121/67; PULSE 71; RESP 15; O2SAT 98
== END 2019-07-24 09:08 | disposition home or self-care (01) ==
PROVIDERS: Emergency Provider Emergency Medicine; Family Provider Family Medicine; PCP Family Medicine
DX: N39.0 Urinary tract infection, site not specified (principal); J06.9 Acute upper respiratory infection, unspecified; F17.200 Nicotine dependence, unspecified, uncomplicated; F32.9 Major depressive disorder, single episode, unspecified; Z79.899 Other long term (current) drug therapy
CPT/HCPCS: 81002; 81025; 99282

== ENCOUNTER 2019-08-10 03:06 | Emergency (ER) | payer OTHER, SELFPAY ==
[2019-08-10 03:08] VITALS: BP 123/72; PULSE 57; RESP 16; TEMP 36.9; O2SAT 99; BMI 23.8
--- NOTE | 2019-08-10 03:13 | RAD_ITS ---
STUDY: X-RAY - LEFT SHOULDER REASON FOR EXAM: Female, 19 years old. Shoulder pain TECHNIQUE: 5 view(s) of the shoulder. COMPARISON: None. FINDINGS: Normal glenohumeral articulation. Normal acromioclavicular joint. Normal acromion. Normal humeral head and visualized proximal humerus. The soft tissue structures are unremarkable. Normal visualized pulmonary apex. RAD/Shoulder min 2 Views IMPRESSION: Normal x-ray examination of the shoulder. Electronically Signed: Noé Tijerina, at 3:37 EDT Tel , Service support ,
--- NOTE | 2019-08-10 03:13 | RAD_ITS ---
STUDY: X-RAY - LEFT ELBOW REASON FOR EXAM: Female, 19 years old. Pain TECHNIQUE: 3 view(s) of the elbow. COMPARISON: None. FINDINGS: Normal visualized humerus, radius and ulna. Normal radiocapitellar and ulnotrochlear articulations. The soft tissue structures are unremarkable. RAD/Elbow min 3 Views IMPRESSION: Normal x-ray examination of the elbow. Electronically Signed: Noé Tijerina, at 3:36 EDT Tel , Service support ,
--- NOTE | 2019-08-10 03:14 | ED.DCSUM_ITS ---
History of Present Illness Chief Complaint: Upper Extremity Injury Narrative: This patient is a 19-year-old female who presents with a left elbow injury. She was trying to move some heavy material on a irineo when she slipped and fell onto her left elbow. She also hit her left knee but does not really have much pain there. No head injury no loss of consciousness no headache no vomiting. No injury to the chest abdomen or back. She does complain of some pain in the left shoulder as well. Past Medical History - Allergies and Home Meds Allergies/Adverse Reactions: Allergies No Known Allergies Allergy (Verified 07/24/19 07:55) Primary Care Physician: Yesenia Santiago MD [Primary Care Provider] - Past Medical History: - - Depression Surgical History: adenoidectomy, tonsillectomy Smoking Status: Current every day smoker Review of Systems All systems negative except as indicated Musculoskeletal: Reports: - - Left elbow and shoulder pain Physical Exam Vital Signs/Narrative: Vital Signs Temp Pulse Resp BP Pulse Ox 08/10/19 03:08 98.5 F 57 L 16 123/72 H 99 Inital Vital Signs reviewed: Yes General: Well nourished, Well developed Head: Normocephalic Eyes: EOMI ENT: Moist mucous membranes Neck: Supple Cardiovascular: Regular rate Respiratory: No distress Extremities: - - Tenderness of the left elbow with some erythema and soft tissue swelling, no bony deformity limited range of motion due to pain, pain with passive range of motion, patient also has reproducible tenderness to the left shoulder with pain with passive range of motion no pain at the wrist or hand or digits she has brisk capillary refill and easily palpable radial pulse she has normal sensation light touch in the radial median and ulnar nerve distributions no tenderness of the left knee with full range of motion without pain Skin: Normal color Neurological: Alert Psychological: Normal affect Diagnostic/Tx/Re-eval Impressions Elbow X-Ray 08/10/19 03:13 IMPRESSION: Normal x-ray examination of the elbow. Electronically Signed: Noé Tijerina, at 3:36 EDT Tel , Service support , Shoulder X-Ray 08/10/19 03:13 IMPRESSION: Normal x-ray examination of the shoulder. Electronically Signed: Noé Tijerina at 3:37 EDT Tel , Service support , 08/10/19 03:13 Elbow min 3 Views [RAD] Stat Shoulder min 2 Views [RAD] Stat - Medical Decision Making X-rays of the left shoulder and elbow are normal. Patient was advised on supportive care including ice elevation and anti-inflammatories. She will follow-up with Worker's Comp. as needed. She understands to return for new or worsening symptoms. She was discharged. ED Disposition - Plan for ED Patient: Disposition: Home or Assisted Living Diagnosis: Left elbow contusion, Contusion of left shoulder Instructions: CONTUSION, Upper Extremity Referrals: eYsenia Santiago MD [Primary Care Provider] - [facility] [GROUP OF PHYSICIANS] -
[2019-08-10] MEDS: Naproxen 500 MG Tablet PO (03:56)
== END 2019-08-10 04:09 | disposition home or self-care (01) ==
PROVIDERS: Emergency Provider Emergency Medicine; Family Provider Family Medicine; PCP Family Medicine
DX: S50.02XA Contusion of left elbow, initial encounter (principal); S40.012A Contusion of left shoulder, initial encounter; F32.9 Major depressive disorder, single episode, unspecified; F17.200 Nicotine dependence, unspecified, uncomplicated; Z79.899 Other long term (current) drug therapy; W01.0XXA Fall on same level from slipping, tripping and stumbling without subsequent striking against object, initial encounter; Y93.89 Activity, other specified; Y92.89 Other specified places as the place of occurrence of the external cause; Y99.0 Civilian activity done for income or pay
CPT/HCPCS: 73030; 73080; 99283

== ENCOUNTER 2019-08-24 19:57 | Emergency (ER) | payer OTHER, MEDICAID, SELFPAY ==
[2019-08-13 11:29] VITALS: BMI 23.8
[2019-08-24 19:58] VITALS: BP 141/75; PULSE 98; RESP 16; TEMP 36.8; O2SAT 100; BMI 23.6
--- NOTE | 2019-08-24 20:57 | CT_ITS ---
STUDY: CT ABDOMEN AND PELVIS WITH CONTRAST REASON FOR EXAM: Female, 19 years old. Pain. RADIATION DOSAGE (If Supplied By Facility): CTDIvol = ( 11.62 ) mGy, DLP = ( 684.60 ) mGycm TECHNIQUE: Transaxial images were obtained from the dome of the diaphragm to the symphysis pubis with oral contrast. Oral and amp; IV Gastrografin and amp; 100mL Isovue-300 100ML was administered. Sagittal and coronal images were reconstructed. Individualized dose optimization techniques were used for this CT. COMPARISON: 11/26/2018. FINDINGS: The visualized lung bases are unremarkable. The visualized portions of the heart are within normal limits. Normal liver. Normal gallbladder and extrahepatic biliary system. Normal spleen. Normal pancreas. Normal bilateral adrenal glands. Normal right kidney. Normal left kidney. Normal visualized stomach. Normal small intestine. Normal colon. The appendix is visualized and appears normal. Normal abdominal aorta. Normal inferior vena cava. Normal retroperitoneum. Normal urinary bladder. Normal visualized uterus, with incidental uterus didelphys noted. Normal abdominal wall. Normal osseous structures. CT/Abdomen/Pelvis WITH Contrast IMPRESSION: Normal enhanced CT of the abdomen and pelvis. Electronically Signed: Gustavo Campbell MD at 23:02 EDT , Service support ,
[2019-08-24 21:12] LABS: Absolute Lymphocyte Count 1.91 X10^3/uL (0.83-4.51); Basophil# 0.02 X10^3/uL; Basophil% 0.2 % (0-1); Eosinophil# 0.04 X10^3/uL; Eosinophils% 0.4 % (0-5); Hematocrit 39.9 % (37-47); Hemoglobin 12.7 g/dL (12.0-15.0); Lymphocyte # 1.91 X10^3/ul (4.0); Lymphocyte % 17.5 % (19-41); Mean Corp Hgb Conc 31.8 g/dL (32-36); Mean Corpuscular Hgb 26.6 pg (27.0-32.0); Mean Corpuscular Volume 83.6 fL (81-99); Mean Platelet Vol. 11.1 fl (6.2-12.0); Monocyte# 0.92 X10^3/uL; Monocyte% 8.4 % (0-10); NRBC Flagged by Analyzer 0 % (0-5); Neutrophil # 7.96 X10^3/uL (2.7-7.7); Neutrophil % 73.1 % (47-70); Platelet Count 185 K/mm3 (150-450); RBC Distribution Width CV 14.7 % (11.6-14.6); RBC Distribution Width SD 44.9 fl (35.1-43.9); Red Blood Count 4.77 M/mm3 (4.2-5.4); White Blood Count 10.9 K/mm3 (4.4-11.0)
[2019-08-24] MEDS: 0.9% Normal Saline 1,000 ML 1000 ML IV (21:16)
[2019-08-24] MEDS: Morphine 4 MG/ML Syringe IV (21:17)
[2019-08-24] MEDS: Ondansetron 4 MG/2 ML Vial IV (21:17)
[2019-08-24 21:25] LABS: Internal QC Validated? YES +Cl - CLEAR BKGD; Pregnancy, Serum, hCG Quali. NEGATIVE Negative
[2019-08-24 21:25] LABS: Bacteria 0 SEEN /hpf (None Seen); Mucous, Urine 0 SEEN /hpf (<or=2+)
[2019-08-24 21:26] LABS: Color, Urine Yellow (Yellow); Glucose, Dipstick Normal (Normal); Ketone-Dipstick Negative (Negative); Leukocyte Esterase-Dipstick Negative /ul (Negative); Nitrite-Dipstick Negative (Negative); Occult Blood-Urine Negative /ul (Negative); Protein-Dipstick Negative (Negative); Urine Bilirubin Dipstick Negative (Negative); Urine Clarity Clear (Clear); Urine Urobilinogen Normal (Normal)
[2019-08-24 21:32] LABS: Squamous Epithelial Cells - UA 0-5 SEEN /hpf (5-10)
[2019-08-24 21:32] LABS: ALB/GLOB Ratio 1.1 RATIO (0.9-2.4); AST(SGOT) 9 U/L (15-37); Alanine Aminotransfer ALT/SGPT 19 U/L (13-56); Alkaline Phosphatase 194 U/L (45-117); Anion Gap 4 (5-15); BUN 15 mg/dL (7-18); BUN/Creat Ratio 18.7 RATIO (10-20); Calcium,Total 9.2 mg/dL (8.5-10.1); Chloride 106 mmol/L (98-107); EST Glomerular Filtration Rate 97 mL/min (>60); Est Glom Filt Rate - Afr Amer 117 mL/min (>60); Estimated Creatinine Clearance 109.08 ml/min; Globulin 3.8 g/dL (2.2-4.2); Glucose 87 mg/dL (74-106); Lipase 128 U/L (73-393); Potassium 3.8 mmol/L (3.5-5.1); Protein, Total 7.8 g/dL (6.4-8.2); Sodium Level 138 mmol/L (136-145)
[2019-08-24 21:33] LABS: Red Blood Cells-Urine 0-5 SEEN /hpf (0-5); White Blood Cells 0-5 SEEN /hpf (0-5)
[2019-08-24 23:08] VITALS: BP 120/75; PULSE 81; RESP 16; O2SAT 100
--- NOTE | 2019-08-24 23:26 | ED.DCSUM_ITS ---
- ER Visit Summary Date of Service: 08/24/19 Chief Complaint: Abdominal pain History of Present Illness: The patient is a 19 F with lower abdominal pain that started yesterday overnight. It is continuous and over her entire lower abdomen. Worse with certain positions. Nothing seems to make it better. As sociated nausea and diarrhea with some mild dizziness. Physical Examination: Afebrile and vital signs unremarkable. Patient is tearful. Lower abdomen diffusely tender with light touch. No guarding or rebound. CVAs tender to palpation bilaterally with light touch. Otherwise exam unremarkable. Test Results: CBC normal. CMP normal. Urinalysis normal. test negative. CT with p.o. and IV contrast showed nothing acute. Emergency Department Course and Treatment: Patient treated with fluids, morphi ne, Zofran while awaiting results. Work-up was unremarkable. Patient has stable vital signs and a nonspecific abdominal exam. She would like to try outpatient therapy. Will prescribe Bentyl and Zofran. She was advised to follow-up with her family doctor for further outpatient testing to help figure out what is causing this. She has new or worsening symptoms, she should return right away for reevaluation. Patient voiced understanding and agreement. Treatment Plan: As above Disposition: Discharge Impression: 1. Lower abdominal pain This note was generated with [employer] dictation software. It may contain incorrect words, spelling, and punctuation that were not noted in review of the chart prior to signing ED Disposition - Plan for ED Patient: Referrals: Yesenia Santiago MD [Primary Care Provider] -
--- NOTE | 2019-08-24 23:28 | ED.DEP ---
ED Disposition - Plan for ED Patient: Instructions: ABDOMINAL PAIN, Unknown Cause, (Female) Prescriptions: Dicyclomine HCl [Bentyl] 20 mg PO TIDAC #20 cap Prescription Printed Ondansetron [Zofran Odt] 4 mg PO Q8H PRN PRN #10 tab PRN Reason: Nausea Prescription Printed Referrals: Yesenia Santiago MD [Primary Care Provider] -
== END 2019-08-24 23:48 | disposition home or self-care (01) ==
PROVIDERS: Emergency Provider Emergency Medicine; Family Provider Family Medicine; PCP Family Medicine
DX: R10.30 Lower abdominal pain, unspecified (principal); F41.9 Anxiety disorder, unspecified; Z72.0 Tobacco use; Z79.899 Other long term (current) drug therapy
CPT/HCPCS: 74177; 80053; 81001; 83690; 84703; 85025; 96361; 96374; 96375; 99283; J7030; Q9967; A4216; J2405

== ENCOUNTER 2019-08-26 17:29 | Emergency (ER) | payer OTHER, MEDICAID, SELFPAY ==
[2019-08-26 17:30] VITALS: BP 122/78; PULSE 73; RESP 18; TEMP 36.2; O2SAT 99; BMI 23.1
--- NOTE | 2019-08-26 17:50 | ED.VIS.GEN ---
History of Present Illness Chief Complaint: Laceration Informant: Patient Onset: Today Current Severity: Mild Narrative: Patient indicates she was cleaning a glass the glass broke she went to pick it out of the sink and she suffered laceration to the lateral fifth digit side right, no loss of function she indicates there is no possibility of foreign body as she basically struck the large glass fragment Past Medical History - Allergies and Home Meds Allergies/Adverse Reactions: Allergies No Known Allergies Allergy (Verified 08/24/19 19:58) Primary Care Physician: Yesenia Santiago MD [Primary Care Provider] - Past Medical History: - - As above denies tetanus up-to-date Surgical History: adenoidectomy, tonsillectomy Smoking Status: Current every day smoker Review of Systems General: Reports: - - Right hand only as above. Denies: Chills, Fever, Sweats Eyes: Denies: Visual changes - bilaterally, Diplopia ENT: Denies: Rhinorrhea, Sore throat Cardiovascular: Denies: Chest pain, Palpitations Respiratory: Denies: Dyspnea, Cough, Dyspnea on exertion Gastrointestinal: Denies: Abdominal pain, Nausea, Vomiting, Diarrhea, Melena, Hematochezia Genitourinary: Denies: Dysuria, Hematuria, Frequency Musculoskeletal: Denies: Back pain, Extremity Pain Skin: Denies: Rash, Wounds Neurological: Denies: Headache, Weakness, Numbness Physical Exam Vital Signs/Narrative: Vital Signs Temp Pulse Resp BP Pulse Ox 08/26/19 17:30 97.2 F L 73 18 122/78 H 99 General: Well nourished, Well developed, No Acute Distress Head: Normocephalic, Atraumatic Eyes: Perrl, EOMI ENT: Moist mucous membranes, No rhinorrhea Neck: Supple, Nontender Cardiovascular: Regular rate, Regular rhythm, No murmurs Respiratory: No distress, CTA bilaterally, Chest nontender Abdomen: Soft, Nontender, Nondistended, Normal bowel sounds Back: Nontender, Normal Inspection Extremities: Nontender, No edema, - - Is a curvilinear really skin abrasion to the lateral surface right hand fifth digit wearing off the lateral side she has full flexion-extension of all fingers neurovascular function normal the skin is barely can be moved apart as it is well approximated there is no foreign body apparent on physical exam or by sensation or touch and the patient denies sense of foreign body and she denies x-ray, Skin: Normal color, No rash Neurological: Alert, Oriented x3, Cranial nerves II-XII grossly intact, Normal Strength, Normal Sensation Psychological: Normal affect, Normal Mood Diagnostic/Tx/Re-eval - Medical Decision Making She is declined x-ray, that he has no physical findings to suggest an history does not support foreign body, as she basically struck her hand against the larger fragment that had broken, the area was sterilely prepped copious irrigated standard prep, and then closed with glue with good results she was instructed on wound care and to return for change in symptoms Home stable Final impression Right hand laceration 1 centimeter closed with glue ED Disposition - Plan for ED Patient: Diagnosis: rt Hand laceration 1 cm Instructions: LACERATION, All, LACERATION, Extremity (Skin Glue) Referrals: Yesenia Santiago MD [Primary Care Provider] -
== END 2019-08-26 18:26 | disposition home or self-care (01) ==
PROVIDERS: Emergency Provider Emergency Medicine; Family Provider Family Medicine; PCP Family Medicine
DX: S61.216A Laceration without foreign body of right little finger without damage to nail, initial encounter (principal); F17.200 Nicotine dependence, unspecified, uncomplicated; W25.XXXA Contact with sharp glass, initial encounter; Y93.E9 Activity, other interior property and clothing maintenance; Y92.008 Other place in unspecified non-institutional (private) residence as the place of occurrence of the external cause; Y99.8 Other external cause status
CPT/HCPCS: 12001; 99282

== ENCOUNTER 2020-04-05 08:48 | Emergency (ER) | payer BC, MEDICAID, SELFPAY ==
[2020-04-05 08:50] VITALS: BP 150/77; PULSE 87; RESP 18; TEMP 35.8; O2SAT 99; BMI 20.2
--- NOTE | 2020-04-05 09:11 | ED.VISSUMM ---
- ER Visit Summary Date of Service: 04/05/20 Chief Complaint: [Redness and swelling to left upper lid] History of Present Illness: The patient is a 19 F [presents to the emergency department with redness and swelling to her left upper eyelid. Patient states that the symptoms started about 4 5 days ago. She has history of stye. Patient is use warm compresses but it still has not resolved. She describes just mild discomfort to the eyelid. She is had no fevers or recent illness. Patient has no medical history otherwise. Patient does not wear make-up.] Physical Examination: [HEENT-PERRLA, EOMI. Cranial nerves II through XII grossly intact. TMs clear. Mucous membranes moist. No adenopathy. Left upper eyelid has some faint edema and just minimal erythema. There is some slight fullness over the lateral aspect of the eyelid near the border with the eyelashes. No discrete abscesses or pustules noted. No evidence of periorbital cellulitis. Eye muscle movement is painless. Cardiovascular-regular rate and rhythm without murmur or ectopy Lungs-clear to auscultation, chest wall stable without crepitus or subcu emphysema Abdomen-normoactive bowel sounds, soft, nontender, no rebound or rigidity, no peritoneal signs. Extremities-intact ?4, normal range of motion, normal pulses, atraumatic] Test Results: [None indicated] Emergency Department Course and Treatment: [Patient will be started on Keflex. Patient advised to continue with warm compresses.] Treatment Plan: [Follow-up with primary care physician in 3 to 5 days.] Disposition: [Discharged home in stable condition] Impression: [Stye left upper eyelid] This note was generated with [employer] dictation software. It may contain incorrect words, spelling, and punctuation that were not noted in review of the chart prior to signing ED Disposition - Plan for ED Patient: Referrals: Yesenia Santiago MD [Primary Care Provider] -
--- NOTE | 2020-04-05 09:13 | DCINST.ED_ITS ---
ED Disposition - Plan for ED Patient: Instructions: ED [facility] Prescriptions: Cephalexin [Keflex] 500 mg PO Q6 #40 cap Transmission Status: Pending to [facility] Referrals: Yesenia Santiago MD [Primary Care Provider] - 3-5 Days
--- NOTE | 2020-04-05 09:13 | ED.DEP ---
ED Disposition - Plan for ED Patient: Instructions: ED [facility] Prescriptions: Cephalexin [Keflex] 500 mg PO Q6 #40 cap Transmission Status: Pending to [facility] Referrals: Yesenia Santiago MD [Primary Care Provider] - 3-5 Days
--- NOTE | 2020-04-05 09:31 | ED.RN ---
DISCHARGE INSTRUCTIONS GIVEN TO AND REVIEWED WITH PATIENT, PATIENT DENIES QUESTIONS OR CONCERNS AND VOICES UNDERSTANDING OF DISCHARGE INSTRUCTIONS. PT AMBULATES OUT OF ROOM WITHOUT DIFFICULTY.
== END 2020-04-05 09:31 | disposition home or self-care (01) ==
LOC: ED 09:27
PROVIDERS: Emergency Provider Emergency Medicine; PCP Family Medicine
DX: H00.014 Hordeolum externum left upper eyelid (principal); Z72.0 Tobacco use
CPT/HCPCS: 99283

== ENCOUNTER 2020-04-13 17:46 | Emergency (ER) | payer BC, MEDICAID, SELFPAY ==
[2020-04-13 17:47] VITALS: BP 135/62; PULSE 65; RESP 14; TEMP 36.8; O2SAT 98; BMI 22.4
--- NOTE | 2020-04-13 18:12 | RAD_ITS ---
STUDY: X-RAY - LEFT SHOULDER REASON FOR EXAM: Female, 19 years old. PAIN ANTERIOR SHOULDER MEDIAL TO THE HUMERAL HEAD AFTER LIFTING HEAVY BOXES TODAY TECHNIQUE: 4 view(s) of the shoulder. COMPARISON: None. FINDINGS: Normal glenohumeral articulation. Normal acromioclavicular joint. Normal acromion. Normal humeral head and visualized proximal humerus. The soft tissue structures are unremarkable. Normal visualized pulmonary apex. RAD/Shoulder min 2 Views IMPRESSION: Normal x-ray examination of the shoulder. Electronically Signed: Dwayne Overton, at 19:12 EDT Tel , Service support ,
--- NOTE | 2020-04-13 18:15 | ED.VISSUMM ---
- ER Visit Summary Date of Service: 04/13/20 Chief Complaint: Left shoulder pain History of Present Illness: The patient is a 19 F presenting with left shoulder pain. Patient states she was lifting boxes today and felt a pop in her left shoulder. She does not wish to file Worker's Compensation paperwork. She states she has also been working out and lifting weights 3 times per day. She tried ibuprofen and Tylenol at home. Denies other injuries. Physical Examination: Vitals are stable. Patient is afebrile. Alert no acute distress. HEENT exam is unremarkable. Neck is nontender. Lungs are clear and equal bilaterally. Heart is regular rate and rhythm. Extremities left anterior shoulder tenderness with active full range of motion. Neurovascular intact distally. Skin is warm and dry. No focal neurologic deficit. Remainder of exam is unremarkable. Emergency Department Course and Treatment: Left shoulder x-ray shows normal x-ray examination of the shoulder. She was given a sling and advised range of motion exercises. She is given a prescription for Naprosyn. Advised to follow-up with her primary care physician. Advised return to ED for worsening complaints. Disposition: Discharge home Impression: Left shoulder sprain This note was generated with [employer] dictation software. It may contain incorrect words, spelling, and punctuation that were not noted in review of the chart prior to signing ED Disposition - Plan for ED Patient: Instructions: ED Shoulder Sprain Prescriptions: Naproxen [Naprosyn] 500 mg PO BID PRN #20 tab Prescription Printed Referrals: Yesenia Santiago MD [Primary Care Provider] -
--- NOTE | 2020-04-13 19:31 | ED.DEP ---
ED Disposition - Plan for ED Patient: Instructions: ED Shoulder Sprain Prescriptions: Naproxen [Naprosyn] 500 mg PO BID PRN #20 tablet Referrals: Yesenia Santiago MD [Primary Care Provider] -
[2020-04-13 19:53] VITALS: RESP 18
== END 2020-04-13 19:55 | disposition home or self-care (01) ==
PROVIDERS: Emergency Provider Emergency Medicine; PCP Family Medicine
DX: S43.402A Unspecified sprain of left shoulder joint, initial encounter (principal); Z72.0 Tobacco use; X50.9XXA Other and unspecified overexertion or strenuous movements or postures, initial encounter; Y93.89 Activity, other specified; Y92.89 Other specified places as the place of occurrence of the external cause; Y99.8 Other external cause status
CPT/HCPCS: 73030; 99283

== ENCOUNTER 2020-06-17 16:17 | Emergency (ER) | payer MEDICAID, SELFPAY ==
[2020-06-17 16:18] VITALS: BP 144/116; PULSE 130; RESP 17; TEMP 37; O2SAT 96; BMI 21.0
[2020-06-17] MEDS: Ondansetron ODT 4 MG Tablet PO (17:04)
[2020-06-17] MEDS: Naproxen 500 MG Tablet PO (17:04)
--- NOTE | 2020-06-17 17:44 | ED.DCSUM_ITS ---
- ER Visit Summary Date of Service: 06/17/20 Chief Complaint: Dysuria and frequency History of Present Illness: The patient is a [address] Santiago. She reports she has dysuria and frequency that began 2 weeks ago. States that she took Azo with out resolution. Patient denies any fever or chills. She does report she has been nausea and vomited twice in the past 2 weeks. No blood in her emesis. She has not vomited today. Patient reports that she has back pain that is 10 out of 10 in severity. She states that this is relieved by a cold shower. She reports that she has left ear pain is 6 out of 10 severity and sore throat is 2 out of 10 in severity. Physical Examination: Vitals: 98.6, 114/66, 130, 17, 96% on room air which is not hypoxic. General: Well-nourished and well-developed. Head: Normocephalic atraumatic. Neck: Supple, no lymphadenopathy. No JVD. Nontender. Cardiovascular: Regular rate and rhythm. No murmurs. Respiratory: No respiratory distress. Clear to auscultation bilaterally. Abdominal: Soft, nontender, nondistended, normal bowel sounds. No guarding, rebound, or peritoneal signs. Back: Mild right CVA tenderness. Extremities: Nontender, no edema. Skin: Normal color, no rash. Neurologic: Alert and oriented ?3. Cranial nerves II through XII are intact. Normal strength and sensation. Psych: Normal affect. Test Results: Urine has leukocytes, blood, ketones, 10-25 white blood cells, and 3+ bacteria. However, there are also 5-10 epithelial cells. test is negative. Emergency Department Course and Treatment: Patient refused an IV and blood work. She was given naproxen and Zofran p.o. She is resting comfortably. Patient is symptomatic. She is treated with Azo and Keflex. Treatment Plan: Patient will be discharged with Pyridium and Keflex. Instructed to follow-up with Dr. Santiago in 1 week if not improving. Return to the emergency department for any worsening symptoms. Disposition: To home in improved and stable condition. Impression: 1. UTI. This note was generated with [employer] dictation software. It may contain incorrect words, spelling, and punctuation that were not noted in review of the chart prior to signing ED Disposition - Plan for ED Patient: Instructions: ED CYSTITIS Female Adult Prescriptions: Cephalexin [Keflex] 500 mg PO Q12 #14 capsule Phenazopyridine HCl [Pyridium] 200 mg PO BID PRN PRN #10 tablet PRN Reason: Pain Referrals: Yesenia Santiago MD [Primary Care Provider] - 1 Week if not improving
[2020-06-17 18:04] LABS: Color, Urine Yellow (Yellow); Glucose, Dipstick Normal (Normal); Internal QC Validated? YES +Cl - CLEAR BKGD; Ketone-Dipstick 15 mg/dl (Negative); Leukocyte Esterase-Dipstick 100 /ul (Negative); Nitrite-Dipstick Negative (Negative); Occult Blood-Urine 10 /ul (Negative); Pregnancy, Urine Negative Negative; Protein-Dipstick 30 mg/dl (Negative); Urine Bilirubin Dipstick Negative (Negative); Urine Clarity Sl. Cloudy (Clear); Urine Urobilinogen Normal (Normal)
[2020-06-17 18:11] LABS: Renal Epithelial Cells 0-5 SEEN /hpf (0-5); Squamous Epithelial Cells - UA 5-10 SEEN /hpf (5-10)
[2020-06-17 18:12] LABS: White Blood Cells 10-25 SEEN /hpf (0-5)
[2020-06-17 18:13] LABS: Bacteria 3+ /hpf (None Seen); Red Blood Cells-Urine 0-5 SEEN /hpf (0-5)
[2020-06-17 18:16] LABS: Fine Granular Cast- Urine 5-10 SEEN /lpf (0-5)
[2020-06-17 18:17] LABS: Mucous, Urine 1+ /hpf (<or=2+)
[2020-06-17 18:33] VITALS: BP 102/64
[2020-06-17] MEDS: Cephalexin 500 MG Capsule PO (18:33)
[2020-06-17] MEDS: Phenazopyridine 95 MG Tablet 190 MG PO (18:33)
[2020-06-17 18:35] VITALS: BP 102/42
== END 2020-06-17 18:35 | disposition home or self-care (01) ==
LOC: ED 17:02
PROVIDERS: Emergency Provider Emergency Medicine; PCP Family Medicine
DX: N39.0 Urinary tract infection, site not specified (principal); J45.909 Unspecified asthma, uncomplicated; Z72.0 Tobacco use
CPT/HCPCS: 81001; 81025; 99283

== ENCOUNTER 2020-07-11 22:07 | Emergency (ER) | payer MEDICAID, SELFPAY ==
[2020-07-11 22:08] VITALS: BP 128/84; PULSE 85; RESP 18; TEMP 36.7; O2SAT 98; BMI 21.4
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
[2020-07-11] MEDS: Ibuprofen 600 MG Tablet PO (23:26)
[2020-07-11] MEDS: Acetaminophen 500 MG Tablet 1000 MG PO (23:26)
[2020-07-12 00:20] VITALS: RESP 14
== END 2020-07-12 00:20 | disposition home or self-care (01) ==
PROVIDERS: Emergency Provider Emergency Medicine; PCP Family Medicine
DX: S20.229A Contusion of unspecified back wall of thorax, initial encounter (principal); S90.31XA Contusion of right foot, initial encounter; S09.90XA Unspecified injury of head, initial encounter; S00.33XA Contusion of nose, initial encounter; S80.811A Abrasion, right lower leg, initial encounter; S30.811A Abrasion of abdominal wall, initial encounter; S40.811A Abrasion of right upper arm, initial encounter; F17.200 Nicotine dependence, unspecified, uncomplicated; Y04.2XXA Assault by strike against or bumped into by another person, initial encounter; Y93.89 Activity, other specified; Y92.009 Unspecified place in unspecified non-institutional (private) residence as the place of occurrence of the external cause; Y99.8 Other external cause status
CPT/HCPCS: 72072; 73630; 99282

== ENCOUNTER 2020-07-14 10:53 | Emergency (ER) | payer MEDICAID, SELFPAY ==
[2020-07-14 10:55] VITALS: BP 117/60; PULSE 60; RESP 14; TEMP 36.5; O2SAT 98; BMI 20.8
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
[2020-07-14] MEDS: cycloBENZAPRine HCl 10 MG Tablet PO (11:45)
[2020-07-14 12:59] VITALS: BP 114/67; PULSE 72; RESP 16; O2SAT 99
== END 2020-07-14 13:00 | disposition home or self-care (01) ==
PROVIDERS: Emergency Provider Emergency Medicine; PCP Family Medicine
DX: S16.1XXA Strain of muscle, fascia and tendon at neck level, initial encounter (principal); Z79.1 Long term (current) use of non-steroidal anti-inflammatories (NSAID); F17.200 Nicotine dependence, unspecified, uncomplicated; X50.0XXA Overexertion from strenuous movement or load, initial encounter; Y93.89 Activity, other specified; Y92.89 Other specified places as the place of occurrence of the external cause; Y99.8 Other external cause status
CPT/HCPCS: 71046; 72040; 99283

== ENCOUNTER 2020-08-26 07:25 | Emergency (ER) | payer MEDICAID, SELFPAY ==
[2020-08-26 07:27] VITALS: BP 145/90; PULSE 111; RESP 22; TEMP 36.6; O2SAT 100; BMI 20.5
--- NOTE | 2020-08-26 08:22 | ED.VIS.GEN ---
History of Present Illness Chief Complaint: Laceration Informant: Patient Onset: Today Maximum Severity: Mild Narrative: Suffered laceration left long finger today cutting carpet tetanus up-to-date no other complaints no loss of function working at home Past Medical History - Allergies and Home Meds Allergies/Adverse Reactions: Allergies No Known Allergies Allergy (Verified 08/26/20 07:26) Primary Care Physician: Yesenia Santiago MD [Primary Care Provider] - Past Medical History: - - Clues as above Surgical History: adenoidectomy, tonsillectomy Smoking Status: Current every day smoker Review of Systems General: Denies: Chills, Fever, Sweats Eyes: Denies: Visual changes - bilaterally, Diplopia ENT: Denies: Rhinorrhea, Sore throat Cardiovascular: Denies: Chest pain, Palpitations Respiratory: Denies: Dyspnea, Cough, Dyspnea on exertion Gastrointestinal: Denies: Abdominal pain, Nausea, Vomiting, Diarrhea, Melena, Hematochezia Genitourinary: Denies: Dysuria, Hematuria, Frequency Musculoskeletal: Reports: Extremity Pain. Denies: Back pain Skin: Denies: Rash, Wounds Neurological: Denies: Headache, Weakness, Numbness Physical Exam Vital Signs/Narrative: Vital Signs Temp Pulse Resp BP Pulse Ox 08/26/20 07:27 97.9 F 111 H 22 H 145/90 H 100 General: Well nourished, Well developed, No Acute Distress Head: Normocephalic, Atraumatic Eyes: Perrl, EOMI ENT: Moist mucous membranes, No rhinorrhea Neck: Supple, Nontender Cardiovascular: Regular rate, Regular rhythm, No murmurs Respiratory: No distress, CTA bilaterally, Chest nontender Abdomen: Soft, Nontender, Nondistended, Normal bowel sounds Back: Nontender, Normal Inspection Extremities: No edema, - - She has a laceration over the PIP extensor crease left long finger, extension flexion full at all joints, no signs of neuro tendinous injury no signs of joint involvement, no signs of bony involvement, the rest of the hand exam is unremarkable Skin: Normal color, No rash Neurological: Alert, Oriented x3, Cranial nerves II-XII grossly intact, Normal Strength, Normal Sensation Psychological: Normal affect, Normal Mood Diagnostic/Tx/Re-eval - Medical Decision Making Discussed imaging patient declined the laceration was sterilely prepped copiously irrigated standard sterile approach to closure closed with nylon with good results Instructed on wound care finger splint follow-up with outpatient providers will return for change in symptoms Final impression 2 cm left long finger laceration Disposition is home stable ED Disposition - Plan for ED Patient: Diagnosis: Hand laceration 2 cm Instructions: ED Laceration All Closures, ED Laceration Hand Referrals: Yesenia Santiago MD [Primary Care Provider] -
[2020-08-26 08:54] VITALS: PULSE 79; RESP 16; O2SAT 99
--- NOTE | 2020-08-26 08:56 | ED.RN ---
THIS NURSE REVIEWED D/C INSTRUCTIONS WITH PT. PT VERBALIZED UNDERSTANDING OF INSTRUCTIONS. DRESSING AND SPLINT APPLIED. PT DENIES FURTHER NEEDS OR QUESTIONS AT THIS TIME. PT AMBULATES FROM ROOM ON OWN WITHOUT ASSISTANCE FROM STAFF
== END 2020-08-26 08:57 | disposition home or self-care (01) ==
LOC: ED 08:16
PROVIDERS: Emergency Provider Emergency Medicine; PCP Family Medicine
DX: S61.213A Laceration without foreign body of left middle finger without damage to nail, initial encounter (principal); F17.200 Nicotine dependence, unspecified, uncomplicated; W26.8XXA Contact with other sharp object(s), not elsewhere classified, initial encounter; Y93.89 Activity, other specified; Y92.89 Other specified places as the place of occurrence of the external cause; Y99.8 Other external cause status
CPT/HCPCS: 12001; 99283

== ENCOUNTER → 2020-09-07 | Outpatient (CLI) | payer MEDICAID, SELFPAY ==
[2020-08-26 07:27] VITALS: BMI 20.5
== END | disposition home or self-care (01) ==
PROVIDERS: PCP Family Medicine; Referring Provider Family Medicine; Visit Provider Family Medicine
DX: B34.9 Viral infection, unspecified (principal)
CPT/HCPCS: 87635; U0003

== ENCOUNTER → 2020-10-19 | Outpatient (CLI) | payer MEDICAID, SELFPAY ==
[2020-10-19 17:19] LABS: Chlamydia Trachomatis by PCR Negative (Negative); Neisserai gonorrhoeae by PCR Negative (Negative); Probe Check PASS; Sample Adequacy Control PASS; Specimen Processing Control PASS
== END | disposition home or self-care (01) ==
LOC: LABSPEC 08:27
PROVIDERS: PCP Family Medicine; Referring Provider Family Medicine; Visit Provider Family Medicine
DX: Z20.2 Contact with and (suspected) exposure to infections with a predominantly sexual mode of transmission (principal)
CPT/HCPCS: 87491; 87591

== ENCOUNTER → 2020-11-03 | Outpatient (CLI) | payer MEDICAID, SELFPAY | END | disposition home or self-care (01) | LOC: LABSPEC 13:37 | PROVIDERS: PCP Family Medicine; Referring Provider Family Medicine; Visit Provider Family Medicine | DX: Z20.828 Contact with and (suspected) exposure to other viral communicable diseases (principal) | CPT/HCPCS: 87635; U0003 ==

== ENCOUNTER → 2021-07-18 16:39 | Outpatient (CLI) | payer MEDICAID, SELFPAY ==
[2021-07-18 17:50] LABS: hCG Titer Quant., Serum < 1 mIU/mL (1-3)
== END ==
PROVIDERS: PCP Family Medicine; Referring Provider Obstetrics & Gynecology; Visit Provider Obstetrics & Gynecology
DX: Z34.90 Encounter for supervision of normal pregnancy, unspecified, unspecified trimester (principal)
CPT/HCPCS: 36415; 84702